=== PATIENT | female | born 1980 | race African-American/Black ===

== ENCOUNTER → 2019-03-22 | Outpatient (CLI) | payer OTHER ==
[~2019-03-22] MED LIST: ACET-716 PO; ADV250INH INH; ALBU17IN2 INH; ALEV220C2 PO; ANUS2.5C2 TOP; AVON1KIT IM; AZO1TAB PO; CIPR-249 PO; MACR100C43 PO; PYRI1TAB5 PO
--- NOTE | 2019-03-24 13:52 | REPMRS ---
Patient History The patient states she has not had a clinical breast exam in over a year. Family history of breast cancer at age 52 in sister, breast cancer at age 56 in brother. Digital Mammo Screening Bilat: March 22, 2019 - Exam #: [id number] Bilateral CC and MLO view(s) were taken. Technologist: Maria Guadalupe Miranda, Technologist FINDINGS: The breast tissue is extremely dense which could obscure a lesion on mammography. There is no evidence of cancer on this mammogram. Assessment: BI-RADS/ACR category 2 mammogram. Benign Findings. Recommendation Routine screening mammogram of both breasts in 1 year (for women over age 40). This mammogram was interpreted with the aid of an FDA-approved computer-aided dectection system. THE LIFETIME RISK OF BREAST CANCER IS 29.2%, THEREFORE SUPPLEMENTAL SCREENING MRI OF THE BREASTS IS RECOMMENDED. Electronically Signed By: Porfirio Ko MD 03/24/19 7324
== END ==
LOC: M RAD 08:25
PROVIDERS: ATTEND Obstetrics & Gynecology
DX: Z12.31 Encounter for screening mammogram for malignant neoplasm of breast (principal); Z80.3 Family history of malignant neoplasm of breast

== ENCOUNTER 2019-03-26 07:35 | Emergency (ER) | payer OTHER ==
[~2019-03-26] VITALS: Ht 177.8 cm; Wt 93.4 kg
[~2019-03-26 07:35] MED LIST changes: -MACR100C43 PO; -PYRI1TAB5 PO
[2019-03-26] MEDS ORDERED: IBUPROFEN 600 MG TAB PO ONE (08:00)
[2019-03-26] MEDS ORDERED: PHENAZOPYRIDINE 100 MG TAB PO ONE (08:00)
[2019-03-26] MEDS ORDERED: NITROFURANTOIN (MACROBID) 100 MG CAP PO ONE (08:30)
[2019-03-26] MEDS ORDERED: PYRI1TAB5 PO (08:38)
[2019-03-26] MEDS ORDERED: MACR100C43 PO (08:38)
[2019-03-26 08:45] VITALS: BP 120/67
== END 2019-03-26 09:03 | disposition home or self-care (01) ==
LOC: M ED 07:35
DX: N39.0 Urinary tract infection, site not specified (principal); G35 Multiple sclerosis; Z79.899 Other long term (current) drug therapy; Z88.0 Allergy status to penicillin